=== PATIENT | female | born 1990 | race Caucasian/White ===

== ENCOUNTER 2021-01-12 19:08 | Emergency (ER) | payer OTHER ==
[~2021-01-12] VITALS: Ht 177.8 cm; Wt 136.1 kg
--- NOTE | 2021-01-13 14:34 | EKG ---
[facility] [address] [place], [place] [address] Signed Normal sinus rhythm with sinus arrhythmia Normal ECG No previous ECGs available Confirmed by MONA LUGO MD ([id number] on 01/13/2021 2:34:21 PM Electronically Signed By: MONA LUGO MD 01/13/21 1434 PATIENT NAME: SUSIE SAMPSON Electrocardiogram DATE OF : 89 PHYSICIAN: MONA LUGO MD REPORT #: [id number] REPORT IS CONFIDENTIAL AND NOT TO BE RELEASED WITHOUT AUTHORIZATION
== END 2021-01-12 23:43 | disposition home or self-care (01) ==
LOC: ED 19:08
DX: R55 Syncope and collapse (principal); S01.512A Laceration without foreign body of oral cavity, initial encounter; S50.01XA Contusion of right elbow, initial encounter; X58.XXXA Exposure to other specified factors, initial encounter
CPT/HCPCS: 70450; 73080; 80053; 83735; 84484; 84703; 85025; 93005; 93010; 99284-25